=== PATIENT | male | born 2000 | race Caucasian/White ===

== ENCOUNTER 2021-06-18 02:51 | Emergency (ER) | payer OTHER ==
[2021-06-18 02:59] VITALS: BP 131/81; PULSE 140; BMI 19.6
[2021-06-18] MEDS ORDERED: ACETAMINOPHEN 500 MG TABLET (FP) ONE (03:07)
[2021-06-18] MEDS ORDERED: ACETAMINOPHEN 500 MG TABLET (FP) PO ONE (03:10)
[2021-06-18 03:39] VITALS: TEMP 101.7
== END 2021-06-18 03:42 | disposition home or self-care (01) ==
LOC: FER 02:51
DX: J02.9 Acute pharyngitis, unspecified (principal)
CPT/HCPCS: 87651; 99283-25